=== PATIENT | female | born 1965 | race Two or more races ===

== ENCOUNTER → 2018-04-17 | Emergency (ER) | payer OTHER ==
[~2018-04-17] VITALS: Ht 165.1 cm; Wt 126.1 kg
[~2018-04-17] MED LIST: CIPRO500 MG PO; COZAAR100 MG; FLAGYL500MG PO; PROTONIX40 MG PO; ROBINUL FORTE2 MG
== END | disposition left against medical advice (07) ==
LOC: ER 18:48
DX: Z53.20 Procedure and treatment not carried out because of patient's decision for unspecified reasons (principal)

== ENCOUNTER → 2020-05-25 | Day surgery (SDC) | payer OTHER | END | disposition home or self-care (01) | LOC: ADM 05-24 14:00 → AMB-ENDOS 06:05 | PROVIDERS: ATTEND Surgery | DX: D13.0 Benign neoplasm of esophagus (principal); K44.9 Diaphragmatic hernia without obstruction or gangrene; Z20.828 Contact with and (suspected) exposure to other viral communicable diseases ==

== ENCOUNTER 2020-10-25 10:55 | Inpatient (IN) | payer OTHER ==
[~2020-10-25] VITALS: Ht 165.1 cm; Wt 89.4 kg
== END 2020-10-30 20:18 | disposition home or self-care (01) | DRG 392 ==
LOC: ER 10:55 → SEC-K 22:00 → MEDI 10-26 11:21
PROVIDERS: ADMIT Specialist; ATTEND Specialist
PROC: BW21YZZ Computerized Tomography (CT Scan) of Abdomen and Pelvis using Other Contrast (ICD-10-PCS; principal; 2020-10-25)
DX: K57.32 Diverticulitis of large intestine without perforation or abscess without bleeding (principal); I10 Essential (primary) hypertension; E66.8 Other obesity; Z20.822 Contact with and (suspected) exposure to COVID-19

== ENCOUNTER 2020-12-19 22:45 | Emergency (ER) | payer OTHER ==
[~2020-12-19] VITALS: Ht 165.1 cm; Wt 85.3 kg
[2020-12-20] MEDS ORDERED: CIPRO500 MG PO (06:15)
[2020-12-20] MEDS ORDERED: KETO10TA2 PO (06:15)
[2020-12-20] MEDS ORDERED: TAMS0.4C PO (06:15)
== END 2020-12-20 06:26 | disposition home or self-care (01) ==
LOC: ER 22:45
DX: N39.0 Urinary tract infection, site not specified (principal); N20.0 Calculus of kidney

== ENCOUNTER 2021-03-28 08:00 | Outpatient (CLI) | payer OTHER ==
[~2021-03-28 08:00] MED LIST changes: +KETO10TA2 PO; +TAMS0.4C PO
== END 2021-03-28 08:13 | disposition home or self-care (01) ==
LOC: TOM 08:00
PROVIDERS: ATTEND Internal Medicine Gastroenterology
DX: K57.30 Diverticulosis of large intestine without perforation or abscess without bleeding (principal); R10.32 Left lower quadrant pain

== ENCOUNTER 2021-05-09 11:21 | Emergency (ER) | payer OTHER ==
[~2021-05-09] VITALS: Ht 165.1 cm; Wt 77.6 kg
[2021-05-09] MEDS ORDERED: FLAGYL500MG PO (16:48)
[2021-05-09] MEDS ORDERED: PRILOSEC OTC20 MG PO (16:48)
[2021-05-09] MEDS ORDERED: DICY20TA PO (16:48)
[2021-05-09] MEDS ORDERED: CIPRO500 MG PO (16:49)
== END 2021-05-09 17:26 | disposition home or self-care (01) ==
LOC: ER 11:21
DX: K57.92 Diverticulitis of intestine, part unspecified, without perforation or abscess without bleeding (principal); R10.9 Unspecified abdominal pain